=== PATIENT | female | born 1980 ===

== ENCOUNTER 2023-05-17 12:33 | Outpatient (REF) | payer OTHER, SELFPAY ==
[2023-05-17 13:11] LABS: MANUAL DIFF FLAG NO
[2023-05-17 13:18] LABS: Basophils Absolute Auto 0.1 X10*3/uL (0.0-0.2); Basophils Percent Auto 0.8 % (0-2); Eosinophils Absolute Auto 0.1 X10*3/uL (0.0-0.4); Eosinophils Percent Auto 1.3 % (0-4); Hematocrit 35.7 % (37.0-47.0); Imm Gran Abs Auto 0.02 X10*3/uL (0.00-0.03); Imm Gran Pct Auto 0.3 % (0.0-0.4); Lymphocytes Absolute Auto 3.1 X10*3/uL (1.2-4.9); Lymphocytes Percent Auto 40.4 % (20-40); Mean Corpuscular HGB Conc 33.6 g/dl (31.0-35.0); Mean Corpuscular Hemoglobin 24.1 pg (27.0-33.0); Mean Corpuscular Volume 71.7 fL (80.0-98.0); Mean Platelet Volume 10.4 fL (9.4-12.3); Monocytes Absolute Auto 0.5 X10*3/uL (0.1-1.2); Monocytes Percent Auto 6.3 % (2-11); Neutrophils Absolute Auto 3.9 x10*3/uL (2.0-8.3); Neutrophils Percent Auto 50.9 % (45-73); Platelet Count 309 X10*3/uL (160-400); Red Blood Count 4.98 X10*6/uL (4.20-5.50); Red Cell Distribution Width 21.3 % (11.0-16.0); White Blood Count 7.6 X10*3/uL (4.8-10.8)
[2023-05-17 14:33] LABS: Iron 289 mcg/dL (30-160); Percent Iron Saturation 73 % (15-50); Total Iron Binding Capacity 396 mcg/dL (228-428); Unsaturated Iron Binding 107 ug/dL
[2023-05-17 14:51] LABS: Ferritin 29 ng/mL (10-250); TSH reflex Free T4 0.59 uIU/mL (0.32-4.0)
== END 2023-05-17 12:34 | disposition home or self-care (01) ==
LOC: HO.10HDL 12:33
PROVIDERS: Visit Provider Obstetrics & Gynecology
DX: N92.0 Excessive and frequent menstruation with regular cycle (principal)
CPT/HCPCS: 36415; 82728; 83540; 84443; 85025

== ENCOUNTER 2023-05-25 07:24 | Outpatient (REF) | payer OTHER, SELFPAY ==
--- NOTE | ~2023-05-25 | MM_ITS ---
EXAMINATION: MM SCREENING DIGITAL BREAST TOMOSYNTHESIS, BILATERAL CLINICAL INFORMATION: Screening. Asymptomatic. COMPARISON: Mammography: This is a baseline mammogram. TECHNIQUE: Digital breast tomosynthesis is performed in both the craniocaudal and mediolateral oblique views along with computer-aided detection (CAD). Synthesized 2D images are generated from the tomosynthesis. FINDINGS: There are scattered areas of fibroglandular density (ACR BI-RADS breast composition Category b). There are no significant masses, abnormal calcifications, or other abnormalities. MM/MM tomosynthesis screening BI IMPRESSION: No mammographic evidence of malignancy. ASSESSMENT: BI-RADS BI-RADS 1 - Negative RECOMMENDATION: Routine annual mammography screening. 1 year F/U This examination should not preclude the clinical evaluation of a suspicious palpable abnormality. This patient's information was entered into a reminder system with a target due date for their next mammogram.
== END 2023-05-25 07:25 | disposition home or self-care (01) ==
LOC: HO.MAMMO 07:24
PROVIDERS: Visit Provider Obstetrics & Gynecology
DX: Z12.31 Encounter for screening mammogram for malignant neoplasm of breast (principal)
CPT/HCPCS: 77063; 77067

== ENCOUNTER → 2023-05-25 07:30 | Outpatient (BNV) | payer OTHER, SELFPAY | PROVIDERS: Visit Provider Radiology Diagnostic Radiology | DX: Z12.31 Encounter for screening mammogram for malignant neoplasm of breast (principal) | CPT/HCPCS: 77063; 77067 ==

== ENCOUNTER 2023-05-27 16:28 | Outpatient (REF) | payer OTHER, SELFPAY ==
--- NOTE | ~2023-05-27 | US_ITS ---
EXAMINATION: US PELVIS CLINICAL INFORMATION: Hypertrophy of uterus. LMP 05/10/2023. COMPARISON: None available. TECHNIQUE: Ultrasound of the pelvis is performed using both transabdominal and transvaginal transducers along with Doppler. Transvaginal imaging is performed due to inadequate visualization transabdominally. FINDINGS: Uterus: The uterus is anteverted and measures 13.0 x 7.7 x 8.6 cm. Uterine echotexture is heterogeneous. The double wall endometrial thickness is 15 mm. Right uterine fibroid measures 6.5 x 6.8 x 6.0 cm Left uterine fibroid measures 2.4 x 2.7 x 2.2 cm Left uterine fibroid measures 2.5 x 2.7 x 2.9 cm Left uterine fibroid measures 3.4 x 3.3 x 3.1 cm Adnexa: There is no pelvic ascites or fluid collection. Right ovary not seen. Left ovary measures 3.6 x 1.9 x 1.9 cm. US/US pelvic and transvaginal IMPRESSION: Thickened endometrium. Advise correlation with menstrual history. Uterine fibroids.
== END 2023-05-27 16:29 | disposition home or self-care (01) ==
LOC: HO.US 16:28
PROVIDERS: Visit Provider Obstetrics & Gynecology
DX: N85.2 Hypertrophy of uterus (principal)
CPT/HCPCS: 76830; 76856

== ENCOUNTER 2023-08-19 07:49 | Outpatient (REF) | payer OTHER, SELFPAY ==
[2023-08-19 10:46] LABS: MANUAL DIFF FLAG NO
[2023-08-19 10:53] LABS: Basophils Absolute Auto 0.1 X10*3/uL (0.0-0.2); Basophils Percent Auto 1.2 % (0-2); Eosinophils Absolute Auto 0.1 X10*3/uL (0.0-0.4); Eosinophils Percent Auto 1.8 % (0-4); Hematocrit 33.3 % (37.0-47.0); Hemoglobin 11.1 g/dl (12.0-16.0); Imm Gran Abs Auto 0.01 X10*3/uL (0.00-0.03); Imm Gran Pct Auto 0.2 % (0.0-0.4); Lymphocytes Percent Auto 39.5 % (20-40); Mean Corpuscular HGB Conc 33.3 g/dl (31.0-35.0); Mean Corpuscular Hemoglobin 23.3 pg (27.0-33.0); Mean Corpuscular Volume 69.8 fL (80.0-98.0); Mean Platelet Volume 10.3 fL (9.4-12.3); Monocytes Absolute Auto 0.4 X10*3/uL (0.1-1.2); Monocytes Percent Auto 8.4 % (2-11); Neutrophils Absolute Auto 2.5 x10*3/uL (2.0-8.3); Neutrophils Percent Auto 48.9 % (45-73); Platelet Count 287 X10*3/uL (160-400); Red Blood Count 4.77 X10*6/uL (4.20-5.50); Red Cell Distribution Width 19.1 % (11.0-16.0); White Blood Count 5.1 X10*3/uL (4.8-10.8)
[2023-08-19 11:26] LABS: Alanine Aminotransferase 17 U/L (0-31); Albumin Level 3.8 g/dL (3.5-5.0); Alkaline Phosphatase 39 U/L (39-117); Anion Gap 8 (12-20); Aspartate Amino Transferase 21 U/L (5-31); Bilirubin Total 0.5 mg/dL (0.0-1.0); Blood Urea Nitrogen 14 mg/dL (9-16); Calcium 9.1 mg/dL (8.4-10.2); Carbon Dioxide 28 mmol/L (22-29); Chloride 109 mmol/L (96-108); Cholesterol 202 mg/dL (<200); Estimated Glomerular Filt Rate > 60; Glucose Random 88 mg/dL (60-115); HDL Cholesterol 53 mg/dL (>40); Iron 28 mcg/dL (30-160); LDL Cholesterol Calculated 128 mg/dL (<100); Percent Iron Saturation 7 % (15-50); Sodium 141 mmol/L (135-145); Total Iron Binding Capacity 388 mcg/dL (228-428); Total Protein 7.1 g/dL (6.5-8.0); Triglycerides 109 mg/dL (<150); Unsaturated Iron Binding 360 ug/dL
[2023-08-19 11:30] LABS: Ferritin 13 ng/mL (10-250); Free T4 (Free Thyroxine) 0.97 ng/dL (0.71-1.85); Thyroid Stimulating Hormone 0.59 uIU/mL (0.32-4.0); Vitamin D 25-OH Total 49.6 ng/mL (>30)
[2023-08-19 21:11] LABS: Vitamin B12 1515 pg/mL (200-900)
== END 2023-08-19 07:50 | disposition home or self-care (01) ==
LOC: HO.10HDL 07:49
PROVIDERS: Visit Provider Family Medicine
DX: Z00.00 Encounter for general adult medical examination without abnormal findings (principal); D50.0 Iron deficiency anemia secondary to blood loss (chronic); E55.9 Vitamin D deficiency, unspecified; I10 Essential (primary) hypertension; Z90.3 Acquired absence of stomach [part of]
CPT/HCPCS: 36415; 80053; 80061; 82306; 82607; 82728; 83540; 84439; 84443; 85025

== ENCOUNTER 2023-09-16 09:21 | Outpatient (AMB) | payer OTHER, SELFPAY ==
--- NOTE | 2023-09-16 09:28 | A.OFFVIS_ITS ---
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 Worse in right leg. Pain and swelling worse in right leg. Feels heaviness in her knee/leg. Has tried compression socks. Patient not diabetic or a smoker. 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 Complaints include pain over varicosities, swelling of lower extremities, cramping, fatigue, and heaviness of the lower extremities. 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 It is noted more so in right leg. In particular she experiences swelling in the right knee. Also of note she has had prior gastric bypass surgery by . Fellow Patient denies any previous venous surgery or injections. Patient denies any history of DVT/ PE. Patient denies any history of phlebitis. Trial of compression includes - [id number] They now present for vascular evaluation regarding their varicose veins. Review of Systems Const Reports as per HPI ENT Reports no additional complaints Card Denies chest pain, Denies chest pain at rest and Denies chest pain with activity Resp Denies chest congestion and Denies cough GI Reports no additional complaints Musc Details: pain over varicosities, aching of lower extremities, swelling, cramping, heaviness and tiredness, itching Denies abnormal gait Skin/Breast Reports pruritus and Denies wounds Neuro Reports no additional complaints and Denies abnormal gait Psych Denies no additional complaints Physical Exam Const General: cooperative, healthy appearing and comfortable Orientation/consciousness: oriented to person, oriented to place and oriented to time Neck Carotids: no bruits Chest Chest palpation & inspection: normal inspection of the chest and normal palpation of entire chest wall Resp Effort & Inspection: normal respiratory effort and able to speak in complete sentences Cardio Rate: regular rate Heart sounds: S1 normal heart sound present and S2 normal heart sound present Peripheral pulses: Peripheral pulses 2+ throughout GI Inspection: Yes normal to inspection Skin Other: +2 edema, large rope-like varicosities greater than 4 mm right knee CEAP Classification C4 - skin color changes Ep - Etiology Primary As - superficial veins P - reflux General skin exam: dry skin Neuro General: oriented to person, oriented to place and oriented to time Extrem Right lower extremity: full ROM, normal capillary refill and edema Left lower extremity: full ROM, normal capillary refill and edema Psych Mental Status: mental status grossly normal Assessment & Plan Assessment & Plan (1) Varicose veins of right lower extremity with inflammation: Code(s): I83.11 - Varicose veins of right lower extremity with inflammation Category: Medical Plan: In short, the patient has evidence of venous insufficiency. I have discussed the pathophysiology with the patient. In addition I have provided informational material regarding venous disease to the patient. We have discussed conservative measures including compression, elevation, and exercise. I have also provided a handout regarding appropriate use of compression stockings and where to purchase good compression stockings as well. I have taken the liberty of ordering venous insufficiency testing with the patient. They will follow up with me after testing. The patient had an opportunity to ask questions regarding the treatment plan. All questions were answered. Imaging studies, laboratory studies and physical exam results were discussed and reviewed in detail. No major barriers to understanding were identified. The patient expressed understanding and agreement with the above treatment plan. The patient is aware they should contact our office by phone for worsening of the current condition or the appearance of new symptoms. Thank you for allowing me to participate in the vascular care of this patient. If you have any questions or concerns regarding the treatment for the above condition please do not hesitate to contact me. The office telephone contact is [phone]. This note is constructed using voice recognition software. While every effort has been made to ensure accuracy, quick mixer operator errors may have been included. Thank you for allowing me to participate in the care of your patient. Yours sincerely, Oliver Christopher MD, FACS, R.P.V.I. (2) Swelling of right knee joint: Code(s): M25.461 - Effusion, right knee Category: Medical Plan: We will continue to workup her venous disease. Should her knee right knee swelling not improve may benefit from an orthopedic evaluation. Orders: Orders US venous duplex LE BI 1 Week I83.11 - Varicose veins of right lower extremity with inflammation Coding Level of Care Code Est Pt Level 4 (51463) Diagnoses Varicose veins of right lower extremity with inflammation I83.11 Swelling of right knee joint M25.461
== END 2023-09-16 09:54 | disposition home or self-care (01) ==
PROVIDERS: PCP Internal Medicine; Visit Provider Surgery Vascular Surgery
DX: I83.11 Varicose veins of right lower extremity with inflammation (principal); M25.461 Effusion, right knee
CPT/HCPCS: 99203

== ENCOUNTER → 2023-09-16 09:21 | Outpatient (BNVA) | payer OTHER, SELFPAY | PROVIDERS: PCP Internal Medicine; Visit Provider Surgery Vascular Surgery ==

== ENCOUNTER 2023-10-14 08:22 | Outpatient (REF) | payer OTHER, SELFPAY ==
--- NOTE | ~2023-10-14 | US_ITS ---
EXAMINATION: US LOWER EXTREMITY VENOUS (REFLUX EXAM), BILATERAL CLINICAL INDICATION: Varicose veins of the right lower extremity COMPARISON: None. TECHNIQUE: Color flow triplex imaging and compression Doppler was performed to evaluate both the deep and the superficial systems bilaterally. To evaluate the superficial system, the examination was performed in the upright position. Color-flow Doppler ultrasound and compression ultrasound were utilized. In addition, maneuvers were utilized to demonstrate reflux. FINDINGS: RIGHT: 1. DEEP VENOUS ULTRASOUND OF THE RIGHT LOWER EXTREMITY: Common Femoral Vein: Compressible, normal respiratory variation and augmented flow. Popliteal Vein: Compressible, normal augmentation. Deep Venous Reflux: There is no evidence of reflux in the deep system in either the common femoral vein or the popliteal vein. There is no evidence of a Junior's cyst. 2. SUPERFICIAL ULTRASOUND WITH DOPPLER OF RIGHT LOWER EXTREMITY: RIGHT GREAT SAPHENOUS VEIN: Saphenofemoral Junction: 7 mm. No reflux. Proximal Thigh: 8 mm. No reflux. Mid Thigh: 6 mm. No reflux. Above Knee: 5 mm. 3276 ms reflux. Below Knee: 3 mm. 3232 ms reflux. Mid Calf: 2 mm. No reflux. Ankle: 2 mm. No reflux. DUPLICATED GREAT SAPHENOUS VEIN: None RIGHT SMALL SAPHENOUS VEIN: Proximal: 5 mm. No reflux. Distal: 2 mm. No reflux. PERFORATORS: None Varicose veins: Right proximal thigh great saphenous vein: 5 mm. No reflux Right above knee great saphenous vein: 3 mm. No reflux Right proximal calf great saphenous vein: 4 mm. No reflux LEFT: 1. DEEP VENOUS ULTRASOUND OF THE LEFT LOWER EXTREMITY: Common Femoral Vein: Compressible, normal respiratory variation and augmented flow. Popliteal Vein: Compressible, normal augmentation. Deep Venous Reflux: There is no evidence of reflux in the deep system in either the common femoral vein or the popliteal vein. There is no evidence of a Junior's cyst. 2. SUPERFICIAL ULTRASOUND WITH DOPPLER OF LEFT LOWER EXTREMITY: LEFT GREAT SAPHENOUS VEIN: Saphenofemoral Junction: 5 mm. No reflux. Proximal Thigh: 6 mm. No reflux. Mid Thigh: 3 mm. No reflux. Above Knee: 3 mm. No reflux. Below Knee: 2 mm. No reflux. Mid Calf: 1 mm. No reflux. Ankle: 2 mm. No reflux. DUPLICATED GREAT SAPHENOUS VEIN: None LEFT SMALL SAPHENOUS VEIN: Proximal: 2 mm. No reflux. Distal: 1 mm. No reflux. PERFORATORS: None US/US venous duplex LE BI IMPRESSION: 1. Abnormal superficial reflux for short segment of the great saphenous vein at the level of the knee. 2. Right proximal thigh to proximal calf varicose veins arising from the great saphenous vein, without abnormal reflux. Abnormal lower extremity venous reflux times: Superficial and deep calf veins: >500 ms Femoropopliteal veins: >1000 ms Perforating veins: >350 ms Aaron N, Ryan J, Nesha L, Arline AK, Lester SS, Gavin Bennett M, Sandi WH. Definition of venous reflux in lower-extremity veins.J Vasc Surg. 2003; [phone].
== END 2023-10-14 08:23 | disposition home or self-care (01) ==
LOC: HO.US 08:22
PROVIDERS: PCP Internal Medicine; Visit Provider Surgery Vascular Surgery
DX: I83.11 Varicose veins of right lower extremity with inflammation (principal)
CPT/HCPCS: 93970

== ENCOUNTER 2023-11-09 08:55 | Outpatient (AMB) | payer OTHER, SELFPAY ==
--- NOTE | 2023-11-09 08:57 | MHC.OFFVIS ---
Vital Signs 11/09/23 08:57 Height 5 ft 4 in Intake Visit Reasons: Follow Up 10/13 US Intake Note: Follow up US 10/14/23 for Right LE VV w/ Heaviness and pain around the knee. Wears compression daily Accompanied by: Self / Same As Patient Allergies red dye Allergy (Mild, Verified 11/09/23 09:00) [facility] HPI Follow Up 10/13 US: Details: Very pleasant 43-year-old female presents for follow-up regarding venous disease. 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 She has used compression with minimal relief. She now presents for follow-up with venous insufficiency testing. Review of Systems Const Reports as per HPI ENT Reports no additional complaints Card Denies chest pain, Denies chest pain at rest and Denies chest pain with activity Resp Denies chest congestion and Denies cough GI Reports no additional complaints Musc Details: pain over varicosities, aching of lower extremities, swelling, cramping, heaviness and tiredness, itching Denies abnormal gait Skin/Breast Reports pruritus and Denies wounds Neuro Reports no additional complaints and Denies abnormal gait Psych Denies no additional complaints Physical Exam Const General: cooperative, healthy appearing and comfortable Orientation/consciousness: oriented to person, oriented to place and oriented to time Neck Carotids: no bruits Chest Chest palpation & inspection: normal inspection of the chest and normal palpation of entire chest wall Resp Effort & Inspection: normal respiratory effort and able to speak in complete sentences Cardio Rate: regular rate Heart sounds: S1 normal heart sound present and S2 normal heart sound present Peripheral pulses: Peripheral pulses 2+ throughout GI Inspection: Yes normal to inspection Skin Other: +2 edema, large rope-like varicosities greater than 4 mm right medial thigh CEAP Classification C4 - skin color changes Ep - Etiology Primary As - superficial veins P - reflux General skin exam: dry skin Neuro General: oriented to person, oriented to place and oriented to time Extrem Right lower extremity: full ROM, normal capillary refill and edema Left lower extremity: full ROM, normal capillary refill and edema Psych Mental Status: mental status grossly normal Results Reviewed Results Reviewed: Brief summary of venous insufficiency testing is as follows: right great saphenous vein: Positive right small saphenous vein: negative right accessory vein: none present left great saphenous vein: negative left small saphenous vein: negative left accessory vein: none present Please note there is no evidence of any venous aneurysms or significant tortuosity Assessment & Plan Assessment & Plan (1) Varicose veins of right lower extremity with inflammation: Code(s): I83.11 - Varicose veins of right lower extremity with inflammation Category: Medical Plan: This patient has varicose veins with inflammation. They continue to be a source of discomfort for the patient. The patient has tried conservative treatment with compression, leg elevation and exercise program for over 3 months time. They have been compliant with all treatment. This has provided minimal relief for the patient. I do not anticipate this course of treatment will alter the underlying etiology. The patient has been scheduled for lower extremity venous treatment inclusive of --- right great saphenous vein Cyanoacralate ablation. Risks, benefits, and complications of this procedure has been discussed in detail with the patient including but not limited to bleeding, infection, and the development of a DVT. The patient has demonstrated a clear understanding and has consented. We will schedule the patient as soon as possible. Thank you for allowing us to participate in this patient's care. If there are any questions or concerns please do not hesitate to contact us. Coding Level of Care Code Est Pt Level 4 (97300) Diagnoses Varicose veins of right lower extremity with inflammation I83.11
== END 2023-11-09 09:49 | disposition home or self-care (01) ==
PROVIDERS: PCP Internal Medicine; Visit Provider Surgery Vascular Surgery
DX: I83.11 Varicose veins of right lower extremity with inflammation (principal)
CPT/HCPCS: 99214

== ENCOUNTER → 2023-11-09 08:55 | Outpatient (BNVA) | payer OTHER, SELFPAY | PROVIDERS: PCP Internal Medicine; Visit Provider Surgery Vascular Surgery ==

== ENCOUNTER 2023-11-26 12:21 | Outpatient (AMB) | payer OTHER, SELFPAY ==
--- NOTE | 2023-11-26 12:28 | A.OFFVIS_ITS ---
Intake Visit Reasons: Right GSV Venaseal Accompanied by: Self / Same As Patient Allergies red dye Allergy (Mild, Verified 11/26/23 12:29) Hives Office Procedures Vascular Office Procedure Details Details: Diagnosis: Right Leg varicose veins with inflammation Procedure: Endovenous Ablation of the right Great Saphenous Vein with VenaSeal Closure System Anesthesia: Local infiltration 5 cc, Estimated Blood Loss: min Specimen: none Duplex ultrasound was used to map out the insufficient saphenous vein, and access was determined and marked on the overlying skin. The depth and diameter of the vein(s) to be treated was documented. The patient was placed supine on the procedure table and the leg was prepped and draped using sterile technique. Ultasound guidance was again used to localize the access site. 1% lidocaine was injected as a local anesthetic in the subcutaneous tissues at the target location in the GSV in the lower leg. Using ultrasound guidance, access was gain ed at this location with the 19 gauge thin walled access needle and followed by introduction of a short guidewire, location confirmed with ultrasound. A small, 3 mm incision was made at the access site to allow for introduction and placement of the 7 Fr x7cm introducer/dilator. The dilator and guidewire were removed. The 0.035 guidewire from the VenaSeal kit was then introduced and positioned at the saphenofemoral junction using ultrasound guidance. The 80 cm 7 Fr introducer sheath/dilator was positioned 5cm from the saphenofemoral junction. The guidewire and dilator were removed, and the remaining sheath was flushed with sterile saline, with the syringe remaining in place prior to the next steps. The cyanoacrylate adhesive was precisely primed into the 5 F delivery catheter and this catheter/syringe combination was attached within the dispenser gun. This assembly was introduced through the 7F sheath and positioned 5 cm caudal of the saphenofemoral junction under ultrasound guidance. The steps from the IFU were followed for dispensing amounts, locations and compression times, 2 aliquots proximally with 3 minutes of compression, and 1 aliquot every 3 cm distally with 30 sec of compression along the course of the vessel. Following the last injection and compression sequence, the catheter and introducer sheath were pulled out from the access site. Hemostasis was achieved with manual compression and an adhesive bandage was applied to the incision. Ultrasound confirmed complete coaptation and closure of the treated segments of the GSV, and the absence of any DVT at the saphenofemoral junction. Treatment time was approximately 5 minutes and the vein length treated was 30 cm. The drapes were removed and the patient cleaned and prepared for discharge. Post op ultrasound check is scheduled for 48-72 hours and the patient was given written post-op instructions. 35744 - Endoven Ther Chem Adhes 1st All charges added?: Procedure code (CPT) selection complete Assessment & Plan Assessment & Plan (1) Varicose veins of right lower extremity with inflammation: Comment: 11/26/2023 - right great saphenous vein Cyanoacralate ablation Code(s): I83.11 - Varicose veins of right lower extremity with inflammation Category: Medical Plan: See op note Coding Level of Care Code Procedure Only Diagnoses Varicose veins of right lower extremity with inflammation I83.11 CPT Codes Details - Vascular 3: 75161 - Endoven Ther Chem Adhes 1st ([id number])
== END 2023-11-26 13:19 | disposition home or self-care (01) ==
PROVIDERS: PCP Internal Medicine; Visit Provider Surgery Vascular Surgery
DX: I83.11 Varicose veins of right lower extremity with inflammation (principal)
CPT/HCPCS: 36482

== ENCOUNTER → 2023-11-26 12:21 | Outpatient (BNVA) | payer OTHER, SELFPAY | PROVIDERS: PCP Internal Medicine; Visit Provider Surgery Vascular Surgery | DX: I83.11 Varicose veins of right lower extremity with inflammation (principal) | CPT/HCPCS: 36482 ==

== ENCOUNTER 2023-11-29 15:30 | Outpatient (REF) | payer OTHER, SELFPAY ==
--- NOTE | ~2023-11-29 | US_ITS ---
EXAMINATION: TRIPLEX SCANNING OF RIGHT LOWER EXTREMITY; SUPERFICIAL ULTRASOUND WITH DOPPLER OF RIGHT LOWER EXTREMITY CLINICAL INFORMATION: Status post RF ablation of the right great saphenous vein originally performed on 11/26/2023. COMPARISON: Preprocedure studies. TECHNIQUE: Color flow triplex imaging and compression Doppler were performed as well as superficial ultrasound with Doppler. FINDINGS: TRIPLEX SCANNING OF RIGHT LOWER EXTREMITY: Respiratory variation, normal compression and augmented flow are noted throughout the lower extremity. The visualized right common femoral vein, femoral vein, profunda femoral vein, popliteal vein and the calf veins show no evidence of deep venous thrombosis. There is no evidence of Junior's cyst. SUPERFICIAL ULTRASOUND WITH DOPPLER OF RIGHT LOWER EXTREMITY: The right great saphenous vein is occluded from the access site to 2.2 cm before the saphenofemoral junction. There is no extension of thrombus into the deep system. US/US venous duplex LE RT IMPRESSION: 1. Normal triplex scan of the right without evidence of deep venous thrombosis. 2. Excellent appearance status post ablation of the right great saphenous vein.
== END 2023-11-29 15:31 | disposition home or self-care (01) ==
LOC: HO.US 15:30
PROVIDERS: PCP Internal Medicine; Visit Provider Surgery Vascular Surgery
DX: M79.604 Pain in right leg (principal)
CPT/HCPCS: 93971

== ENCOUNTER 2023-12-14 08:59 | Outpatient (AMB) | payer OTHER, SELFPAY ==
--- NOTE | 2023-12-14 09:03 | A.OFFVIS_ITS ---
Vital Signs 12/14/23 09:03 Height 5 ft 4 in Intake Visit Reasons: 2 week follow up Right GSV Venaseal 11/26/23 Intake Note: 2 week follow up Right GSV Venaseal 11/26/23, pt states she feels better overall, does have some achiness in bilateral LE from being on her feet all day but the right LE looks and feels better than before Accompanied by: Self / Same As Patient Allergies red dye Allergy (Mild, Verified 12/14/23 09:05) Hives HPI HPI 2 week follow up Right GSV Venaseal 11/26/23: Details: Very pleasant 43-year-old female presents for follow-up status post right great saphenous vein ablation. She appears to be doing extremely well postprocedure. Overall swelling and discomfort have significantly improved. She now presents for routine postprocedure follow-up. Of note postprocedure ultrasound was negative for DVT. Review of Systems Const All systems reviewed & are unremarkable except as noted in HPI and below Reports no additional complaints ENT Reports Normal hearing present Card Denies chest pain, Denies chest pain at rest, Denies chest pain with activity and Denies pedal edema Resp Denies cough GI Denies abdominal pain Musc Denies abnormal gait, Denies muscle cramps and Denies radiating pain into limb Skin/Breast Denies skin ulcer and Denies wounds Neuro Reports Normal hearing present and Denies abnormal gait Psych Reports no additional complaints Physical Exam Const General: cooperative, healthy appearing and comfortable Orientation/consciousness: oriented to person, oriented to place and oriented to time HEENT Head: Yes normal to inspection Neck Neck: Yes normal visual inspection Carotids: no bruits Chest Chest palpation & inspection: normal inspection of the chest Resp Effort & Inspection: normal respiratory effort and able to speak in complete sentences Auscultation: clear to auscultation bilaterally, no crackles, no rales, no rhonc hi and no wheezes Cardio Rate: regular rate Rhythm: regular rhythm Heart sounds: S1 normal heart sound present and S2 normal heart sound present Bruits: no carotid bruits Peripheral pulses: Peripheral pulses 2+ throughout GI Inspection: Yes normal to inspection Skin Wounds: no wounds Hair: normal Neuro General: oriented to person, oriented to place and oriented to time Cranial nerves: Yes CN's II-XII intact bilaterally and Yes Normal hearing present Cognition (Neuro): normal cognition Motor exam (neuro): 08/28 motor strength present throughout Extrem Other: venous exam: No significant superficial varicosities or spider telangiectasias, minimal edema General: No clubbing, No cyanosis and No edema Psych Appearance: grossly normal Mental Status: mental status grossly normal Speech and movement: Normal speech and movement present Assessment & Plan Assessment & Plan (1) Varicose veins of right lower extremity with inflammation: Comment: 11/26/2023 - right great saphenous vein Cyanoacralate ablation Code(s): I83.11 - Varicose veins of right lower extremity with inflammation Category: Medical Plan: The patient has done extremely well with all venous treatments. Patient's may often experience postprocedure phlebitic episodes and I have discussed with the patient use of warm compresses and NSAIDS if tolerated for pain discomfort. In addition, I have discussed continued conservative measures including use of compression, leg elevation, and exercise. The patient was also given an information sheet regarding appropriate use of compression stockings and future purchases. Thank you for allowing us to care for your patient with venous disease. Coding Level of Care Code Est Pt Level 3 (43175) Diagnoses Varicose veins of right lower extremity with inflammation I83.11
== END 2023-12-14 09:27 | disposition home or self-care (01) ==
PROVIDERS: PCP Internal Medicine; Visit Provider Surgery Vascular Surgery
DX: I83.11 Varicose veins of right lower extremity with inflammation (principal)
CPT/HCPCS: 99213

== ENCOUNTER → 2023-12-14 08:59 | Outpatient (BNVA) | payer OTHER, SELFPAY | PROVIDERS: PCP Internal Medicine; Visit Provider Surgery Vascular Surgery ==

== ENCOUNTER 2024-06-21 12:05 | Outpatient (REF) | payer OTHER, SELFPAY ==
--- OUTSIDE RECORDS SUMMARY | 2024-06-21 15:06 | XMS_ITS | Clinical Summary ---
Author Organization [facility] [address] [facility] l[address] Address [address] [place] [address] Phone Care Team Providers Care Project Engineering Director Name Role Phone Siobhan Kumar MD Primary Care Provider Allergies Active Allergy Reactions Criticality Noted Date Comments Fd And C Red No. 3 06/03/2017 Other Reaction(s): Hives/Urticaria Other 08/16/2018 Lobster Medications apple cider vinegar 500 mg tablet Take by mouth daily. Active MULTIVITAMIN ORAL Take by mouth. Active cholecalciferol (VITAMIN D-3) 50 mcg (2,000 unit) tablet Take by mouth. Active CIMETIDINE ORAL Take by mouth. Active losartan-hydroCHL OROthiazide (HYZAAR) 50-12.5 mg per tabletIndications :Essential (primary) hypertension TAKE 1 TABLET BY MOUTH EVERY DAY 90 tablet 1 03/17/2024 Active Active Problems Problem Noted Date Diagnosed Date Eating disorder 11/05/2020 Prediabetes 06/12/2020 Vitamin D deficiency 06/10/2020 Pure hypercholesterolemia 08/16/2018 Class 2 obesity due to exces s calories with body mass index (BMI) of 38.0 to 38.9 in adult 06/03/2017 Immunizations Name Administration Dates Next Due Influenza trivalent, with pr eservative (Fluzone; Afluria) 6mo and older 02/07/2021,01/20/2018 Influenza, Unspecified 02/10/2019 Tdap Tetanus diptheria acell ular pertussis (Boostrix; Adacel) 7yo and older 06/10/2018,05/22/2010 Surgical History Surgery Date Site/Laterality Comments BARIATRIC SURGERY 11/20/2020 PROCEDURE: MI LAPS GSTRC RSTRICTIV PX LONGITUDINAL GASTRECTOMY; COMMENT: By Dr. Ann - laparoscopic sleeve gastrectomy Medical History Medical History Date Comments History of abnormal cervical Pap smear 08/16/2018 DX:History of abnormal cervical Pap smear; COMMENT: ASCUS 2000 Morbid obesity with BMI of 4 0.0-44.9, adult (CMS/HCC) 06/03/2017 DX:Morbid obesity with BMI o f 40.0-44.9, adult (HCC) Pure hypercholesterolemia 08/16/2018 DX:Pur e hypercholesterolemia Vitamin D deficiency 06/10/2020 DX:Vitamin D deficiency Prediabetes 06/12/2020 DX:Prediabetes Eating disorder 11/05/2020 DX:Eating disord er History of sleeve gastrectomy 12/10/2020 DX :History of sleeve gastrectomy; COMMENT: 10/2020 Family History Medical History Relation Name Comments Heart attack Father Hyperlipidemia Father Hypertension Father hypercholestero lemia, [place] Diabetes Maternal Grandfather No Known Problems Maternal Grandmother Diabetes Mother Hypertension Mother Multiple Sclero sis, DM Multiple sclerosis Mother Leukemia Paternal Grandfather Stroke Paternal Grandmother [place] No Known Problems Sister Relation Name Status Comments Father Alive Maternal Grandfather Maternal Grandmother Alive Mother Alive Paternal Grandfather Paternal Grandmother Sister Alive Social History Tobacco Use Types Packs/Day Years Used Date Smoking Tobacco: Never Smokeless Tobacco: Never Alcohol Use Standard Drinks/Week Comments Yes 0 (1 standard drink = 0.6 oz pur e alcohol) Comments Unknown Sex and Gender Information Value Date Recorded Sex Assigned at Not on file Legal Sex Female 8:51 PM EST Gender Identity Not on file Sexual Orientation Not on file Obstetrics History Last Filed Vital Signs Vital Sign Reading Time Taken Comments Blood Pressure 124/80 03/14/2024 1:46 PM EST Pulse 75 03/14/2024 1:46 PM EST Temperature 36.6 ??C (97.8 ??F) 03/14/2024 1:46 PM ES T Respiratory Rate - - Oxygen Saturation - - Inhaled Oxygen Concentration - - Weight 81.6 kg (180 lb) 03/14/2024 1:46 PM EST Height 162.6 cm (5' 4 ) 03/14/2024 1:46 PM EST Body Mass Index 30.9 03/14/2024 1:46 PM EST Plan of Treatment Health Maintenance Due Date Last Done Comments Breast Cancer Screening 1982 Hepatitis B Vaccines (1 of 3 - 19+ 3-dose series) 2001 Depression Screening 04/04/2022 HIV Screening 04/04/2022 Hepatitis C Screening 04/04/2022 Social Influencers of Health Screening 04/04/2022 Hypertension/CHF/CAD Annual BMP Blood Test 10/31/2023 10/30/2022 COVID-19 Vaccine (3 2023- season) 2023 01/24/2021, 12/27/2020 Influenza Vaccine (#1) 2023 , 02/10/2019, 01/20/2018, Additional history exists Cervical Cancer Screening: Pap Smear 05/13/2026 05/13/2023 Cholesterol Screening (Lipid Panel) 10/31/2027 10/30/2022 DTaP,Tdap,and Td Vaccines (3 - Td or Tdap) 06/10/2028 06/10/2018, 05/22/2010 HIB Vaccines Aged Out No longer eligi ble based on patient's age to complete this topic HPV Vaccines Aged Out No longer eligi ble based on patient's age to complete this topic Hepatitis A Vaccines Aged Out No long er eligible based on patient's age to complete this topic IPV Vaccines Aged Out No longer eligi ble based on patient's age to complete this topic MMR Vaccines Aged Out No longer eligi ble based on patient's age to complete this topic Meningococcal ACWY Vaccine Aged Out N o longer eligible based on patient's age to complete this topic Meningococcal B Vacine Aged Out No lo nger eligible based on patient's age to complete this topic Pneumococcal Vaccine: Pediatrics (0 to 5 Years) and At-Risk Patients (6 to 64 Years) Aged Out No longer eligible based on patient's age to complete this topic RSV Immunization Patients Under 20 months Aged Out No longer eligible based on patient's age to complete this topic Varicella Vaccines Aged Out No longer eligible based on patient's age to complete this topic Procedures Procedure Name Priority Date/Time Associated Diagnosis Comments HM PAP SMEAR Routine 05/13/2023 ANNUAL BMP BLOOD TEST Routine 10/30/2022 LIPID PANEL Routine 10/30/2022 from Last 3 Months or Most Recently Relevant to Health Maintenance Results * Pap Smear (05/13/2023) Pap smear Normal, Abstracted Comment:normal per pt report fby PROFESSOR OF POLITICAL SCIENCE [facility] Provider HEALTH MAINTENANCE Final Result * Annual BMP Blood Test (10/30/2022) Annual BMP Blood Test Abstracted [facility] Provider HEALTH MAINTENANCE Final Result * (ABNORMAL) Lipid panel (10/30/2022) LDL/HDL Ratio 4 0 - 4 Triglycerides 194(A) 0 - 150 mg/dL Cholesterol 251(A) 0 - 200 mg/dL HDL 61 >=40 mg/dL LDL Cholesterol 152(A) 0 - 100 mg/dL Blood Venous blood specimen / Unknown [facility] Provider LAB BLOOD ORDERABLES [place] l Result from Last 3 Months or Most Recently Relevant to Health Maintenance Insurance Care Teams Project Engineering Director Relationship Specialty Start Date End Date Siobhan Kumar MD [address] [place] [id number] PCP - General Internal Medicine 12/03/21
--- OUTSIDE RECORDS SUMMARY | 2024-06-21 15:06 | XMS_ITS | Continuity of Care Document ---
Author Organization [facility] Address [address] [place], [place] [address] [place] [address] SOCIAL HISTORY Not on file MENTAL STATUS Not on file ENCOUNTERS Reason for Visit Encounter Type Attending Provider Locatio n Date Not Specified Not Specified Dianna Huff 05/28/19 25 FAMILY HISTORY Not on file
--- OUTSIDE RECORDS SUMMARY | 2024-06-21 15:06 | XMS_ITS | Continuity of Care Document ---
Author Organization [address] [place] [address] Phone Care Team Providers Care Glass Washer Name Role Phone Provider, Conversion Unavailable Unavailable [...] Diagnoses Date Provider Providers Copied on Encounter [address] [place] [id number], [place] tel:[phone] [facility] No Information Sep-0 4 Provider Conversion. . [address] [place], [id number], [place] tel:[phone] [facility] ([phone]) Sep-0 3 Unidentified Provider. [address] [place] [address], [id number], . [address] [place], [id number], [place] tel:[phone] [facility] No Information Sep-0 3- 3 Unidentified Provider. [address] [place] [address], [id number], . [address] [place], [id number], [place] tel:[phone] [facility] No Information Sep-0 2 Unidentified Provider. [address] [place] [address] Mary Beth, [place], [address], [place]. [address] [place], [place], [id number], [place] tel:[phone] [facility] No Information 2 Provider Conversion. . Family History Family [...] Record Payers Payer name Insurance type Covered republican ID Authoriza tion(s) No Information Social History [...]
--- OUTSIDE RECORDS SUMMARY | 2024-06-21 15:06 | XMS_ITS | Data Portability ---
Author Organization [place] - [facility],, LASHELL MERRITT MD Address [address] [facility] [address] [place] [phone] Care Team Providers Care Event Sales Manager Name Role Phone MAHESHBRYANNA BERNARDO Primary Care Provider Assessment No assessment recorded. Plan of Treatment Reminders Order Date Submit Date Provider Last Modified By Organization Details Last Modified Time Details Appointments None recorded. Lab biopsy, endometria l 2023 024 [facility] (Centralized Electronic Ordering - All Locations), Patient Can Go To The Location Of Their Choice, [id number] 4 07:38:27 test, urine 2023 024 [email or web address] 1 In-Office Order, Internal Use Only DO Not Attach Compendium DO Not Attach Compendium, Do Not Delete/merge, [id number] 4 10:24:27 pap test, thinprep, cervical 2023 024 [facility] - All Locations), Patient Can Go To The Location Of Their Choice, [id number] 4 07:25:44 TSH, serum or plasma 2023 024 [facility], [place], [address], 4 11:34:36 CBC w/ auto diff 2023 024 [facility], [place], [address], 4 11:34:35 iron + TIBC + ferritin, serum 2023 [facility], [address] [facility] [place], [address], 4 11:34:35 Referral infertilit y reproducti ve endocrinol ogy referral - has a 7 cm fibroid, desires fertility, please assess for possible myomectomy 2023 [facility], [address], [place], [address], 5 07:24:01 Procedures None recorded. Surgeries None recorded. Imaging MAMMO, screening, digital, bilateral - Breast Aspiration and/or Biopsy if needed 2023 [facility] (Imaging), [address] [place], [address], 4 08:07:32 US, pelvis, transabdom inal + transvagin al - enlarged uterus, fibroids, menorrhagi a 2023 024 [facility] (Imaging), [address] [place], [address], 4 18:14:23 Medication Orders doxycyclin e monohydrat e 100 mg capsule 2023 [id number], [address] [facility] [place], [address], 4 11:22:37 Patient TargetsNo targets recorded. 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 She had been going to Dr. Huerta. Same partner for many years, on and off, they never got together. She did have 2 pregnancies with a different partner, one was premature at 24 weeks, who did not survive, the other was an IUFD at 22 weeks, many years ago. She is sexually active with no control and no with this partner for decades, on and off, since high school. She would actually like to be if she could but does not desire actively investigating this. He has never fathered any children. She was told in the remote past that she had a fibroid based on sonogram. She had been offered an IUD for her severe menorrhagia nad anemia due to this, but she had declined. Her PCP diagnosed her with low iron and ferritin this summer and she has been taking iron pills has not had it retested. She notes her flow is very heavy for 3 days then tapers off, the heaviest flow she changes a super tampon every 2 to 4 hours and may bleeding through it anyway. We had a long discussion about all this. check cbc and iron studies, check pelvic sonogram, and then will do a telehealth to discuss best management. If she wants to know if her partner is infertile we can do a PCT, she is advised on how to do this. We discussed high risks issues with fibroids and she is advised to NOT attempt fertility until we know what the fibroid is like. She appears to be doing well. Check baseline mammogram. Monthly self breast exam was taught, and stressed, and is advised to call if she discovers any new mass in the breast. Not available 05/05/2023 09:47:27 06/10/2023 [id number] abnormal uterine bleeding: care instructions Not available 06/10/2023 10:24:27 endometrial biopsy: about this test Not available 06/10/2023 10:24:27 She is here for emb for menorrhagia and a 15 mm endometrium on sonogram. LMP was 10 days ago, has not been sexually active since LMP began, menses came at the correct time and normal flow. Urine hcg is negative. 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 She had been going to Dr. Huerta. Same partner for many years, on and off, they never got together. She did have 2 pregnancies with a different partner, one was premature at 24 weeks, who did not survive, the other was an IUFD at 22 weeks, many years ago. She is sexually active with no control and no with this partner for decades, on and off, since high school. She would actually like to be if she could but does not desire actively investigating this. He has never fathered any children. She was told in the remote past that she had a fibroid based on sonogram. She had been offered an IUD for her severe menorrhagia nad anemia due to this, but she had declined. Her PCP diagnosed her with low iron and ferritin this summer and she has been taking iron pills has not had it retested. She notes her flow is very heavy for 3 days then tapers off, the heaviest flow she changes a super tampon every 2 to 4 hours and may bleeding through it anyway. We had a long discussion about all this. check cbc and iron studies, check pelvic sonogram, and then will do a telehealth to discuss best management. If she wants to know if her partner is infertile we can do a PCT, she is advised on how to do this. We discussed high risks issues with fibroids and she is advised to NOT attempt fertility until we know what the fibroid is like. She appears to be doing well. Check baseline mammogram. Uterus sounds to 10 cm, was 13 cm long on sonogram. She tolerated emb well. Await results. recent labs TSH 0.59, H/H 12/35, iron studies high normal. She is tolerating this menorrhagia well, however she would like to do what she can to diminish this heavy flow. Not available 06/10/2023 10:27:21 07/01/2023 [id number] uterine fibroids : care instructions Not available 07/01/2023 11:23:42 This visit is a phone telehealth visit. The patient consented to the visit by phone. The patient was at home at the time of the call and the provider and patient were the only people on the line. I was at [address] [facility], [address], [place], [place], at the time of the call. She had a recent emb that showed chronic endometritis. LMP 06/27/23. __ Note from 06/10/23: She is here for emb for menorrhagia and a 15 mm endometrium on sonogram. LMP was 10 days ago, has not been sexually active since LMP began, menses came at the correct time and normal flow. Urine hcg is negative. She is aware that this may or may not explain some of her symptoms however she would like to treat it to see if it helps. She is aware that doxycycline can cause defects, LMP began 4 days ago, she is abstinent, and agrees to not have intercourse this cycle. She will repeat EMB in 4 weeks, again will remain abstinent until after the emb.. All questions answered. We also discussed the 7 cm fibroid, she would like to have it removed before she attempts fertility, referral placed for E and I. The patient was agreeable to this plan. She is aware of the limitations caused by the covid restrictions, and this phone call. Face to face discussion 21 minutes Not available 07/01/2023 13:31:00 Reason for Referral Infertility Reproductive End ocrinology Referral for Uterine leiomyoma has a 7 cm fibroid, desires fertility, please assess for possible myomectomy Referring Physician: Lashell Merritt, Gynecology, Encounter Date: 07/01/2023 Results Created Date Observation Date Name Description Value Unit Range Abnormal Flag Note LastModifiedBy Organization Detail LastModifiedTime 05/05/19 24 05/05/2023 [facility] CYTOL OGY results Patilyndsey nt Name: SIOBHAN MONTES nt : 1980 (Age: 42) Lab Acces segun #: [id number] Colle ction Date: 2023 Acces segun Date: 2023 Sign Out Date: 2023 Tissu e Sourc e: 1: 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 React jayme cellu jordan fabian es assoc iated with infla mmati on. Satis facto ry for evalu ation . Endoc ervic al/tr ansfo rmati on zone prese nt. Clini chana Histo ry: Date of Last Menst rual Perio d: not avail able Menst rual Histo ry: not avail able Contr acept jayme Histo ry: not avail able Ancil amanda Testi ng: Case image d by the ThinP rep Imagi ng Syste m with wanda patel or sourav negrete. Perfo rmed at [facility] ate Refer ence Labor at[facility] t[facility] Cytol ogy, [address] [place] Clini chana Histo ry (othe r): Z01.4 19 Prima ry Patho logis t: Danyell hassan M.D. Phone #: [phone], On-Ca ll Patho logis t: [id number] Not Available [facility] (Centralized Electronic Ordering - All Locations) Patient Can Go To The Location Of Their Choice, [id number] 05/14/2023 09:42:33 06/10/19 24 06/10/2023 [facility] SURGI CHANA PATHO LOGY results Patie nt Name: SIOBHAN MONTES Lab Acces segun #: [id number] Patie nt : 1980 (Age: 43) Colle ction Date: 2023 Acces segun Date: 2023 Sign Out Date: 024 Tissu e Sourc e: 1:END OMETR IUM BIOPS Y Final Diagn osis: Endom etriu m, biops y: - Sugge stive of chron ic endom etrit is NOTE: Proli ferat jayme endom etriu m is prese nt with spind led malgorzata del real nts, lymph oid aggre morse , and scatt ered eosin ophil s. The latte r featu res may be assoc iated with chron ic endom etrit is, howev er plasm a cells are not ident ified . There fore, a diagn osis of chron ic endom etrit is canno t be firml y estab lishe d based on histo logic findi ngs in this mater ial. Prima ry Patho logis t:Rachel villarreal M.D. elect melody virk carley d out by: Aubree villarreal M.D. / DIPTI Clini chana Histo ry: Thick ened endom etriu m Gross Descr iptio n: Label ed EMB . Recei cinthia in forma gabe and filte red is a 2.4 x 1.7 x 0.2 cm aggre gate of red, ryan tissu e. The speci men is entir moy submi tted. 1-mul tiple piece s, x2. (HG)* Phone #: [phone], On-Ca ll Patho logis t: [id number] Not Available [facility] (Centralized Electronic Ordering - All Locations) Patient Can Go To The Location Of Their Choice, [id number] 06/29/2023 16:57:41 06/10/19 24 06/10/2023 pregn delia test, urine HCG negati ve Not Available In-Office Order Internal Use Only DO Not Attach Compendium DO Not Attach Compendium, Do Not Delete/merge, [id number] 06/10/2023 10:23:05 05/31/19 24 05/27/2023 US, pelvi s, trans abdom inal + trans vagin al No observ ation record ed. [address], [address], 06/07/2023 15:34:49 06/07/19 24 05/25/2023 MAMMO , scree kenny, digit al, bilat eral No observ ation record ed. [email or web address] [address] [place], [address], 06/21/2023 08:11:13 Result Notes None recorded. Problems Name Problem SNOMED Code Status Onset Date Resolution Date Notes Provider Name and Address Organization Details Recorded Time Anemia 395061607 Active 2023 Carmel lombardi [place] - [facility], 01/10/202 4 08:57:50 Hypertensive disorder 15227221 Active 2023 Carmel lombardi [place] - [facility], 4 08:57:56 Problem Notes None recorded. Procedures Surgical History Date Name Laterality Status Provider Name and Address Organization Details Recorded Time 06/10/19 24 Endometrial Biopsy completed Lashell Merritt MD [address] [facility],[address], [place], [address], [place] - [facility], 06/10/2023 10:29:54 05/16/19 21 laparoscopic sleeve gastrectomy completed Carmel Villalpando [place] - [facility], 05/05/2023 09:02:36 Imaging Results Imaging Date Name Status LastModified by Organization Details LastModified Time 05/27/2023 US, pelvis, transabdominal + transvaginal completed [place] [id number] [place], [address], 06/07/2023 15:34:49 05/25/2023 MAMMO, screening, digital, bilateral completed [email or web address] [facility] [address] [place], [address], 06/21/2023 08:11:13 Procedure Notes None recorded. Medical Equipment None Reported. Allergies Allergen ID Allergen Name Allergen Category Reaction Reaction Severity Criticality Documentation Date Start Date Code Code System Note Provider Name and Address Organization Details Recorded Time 46791 red dye food,medi cation Not available Not available Not available 05/05/2023 UNK Carmel lombardi [place] - [facility], 4 08:55:04 Medications Name Sig Start Date Stop Date Status Note LastModified by Organization Details LastModified Time phentermine 15 mg capsule TAKE 1 CAPSULE BY MOUTH EVERY DAY IN THE MORNING active Not Available Not Available No t Available triamcinolo ne acetonide 0.5 % topical ointment APPLY 1 GRAM TOPICALLY 2 TIMES DAILY FOR 10 DAYS. 05/05 completed Not Available Not Available Not Available doxycycline monohydrate 100 mg tablet TAKE 1 TABLET BY MOUTH TWICE A DAY FOR 10 DAYS 05/05 completed Not Available Not Available Not Available doxycycline monohydrate 100 mg capsule TAKE 1 CAPSULE BY MOUTH TWICE A DAY FOR 14 DAYS active Not Available Not Available No t Available ferrous sulfate 325 mg (65 mg iron) tablet TAKE 1 TABLET BY MOUTH EVERY DAY 06/10 completed Not Available Not Available Not Available losartan 50 mg-hydrochl orothiazide 12.5 mg tablet TAKE 1 TABLET BY MOUTH EVERY DAY active Not Available Not Available No t Available norethindro ne (contracept jayme) 0.35 mg tablet TAKE 1 TABLET BY MOUTH 1 TIME EACH DAY. 05/05 completed Not Available Not Available Not Available Vitamin D3 active Not Available Not Av ailable Not Available red beet 250 mg-sour nelson extract 0.5 mg chewable tablet Take by oral route. active Not Available Not Available No t Available Vitals Date Recorded Body weight Body mass index (BMI) Body height Heart rate Systolic blood pressure Diastolic blood pressure Provider Name and Address Organization Details Last Updated DateTime 4 578436. 1 g 38.3 kg/m2 162.56 cm 81 /min 122 mm[Hg] 82 mm[Hg] Carmel Villalpando [place] - [facility], 4 08:57:34 Date Recorded Body height Body mass index (BMI) Body weight Heart rate Body temperature Systolic blood pressure Diastolic blood pressure Provider Name and Address Organization Details Last Updated DateTime 4 162.56 cm 39.6 kg/m2 352509. 4 g 77 /min 97.2 [degF] 137 mm[Hg] 92 mm[Hg] carlene jasmine [place] - [facility], 4 09:55:10 Date Recorded Body height Provider Name an d Address Organization Details Last Updated DateTime 07/01/2023 162.56 cm Nayana dunne in [facility], 07/01/2023 11:04:06 Social History Question Answer Notes LastModified by Organization Details LastModified Time Tobacco Smoking Status Never Smoker Carmel lombardi [place] - [facility], 05/05/2023 08:58:25 What Is Your Level Of Alcohol Consumption? Occasional Information not available 05/05/2023 What Is Your Level Of Caffeine Consumption? Occasional Information not available 05/05/2023 In The 14 Days Before Symptom Onset, Have You Had Close Contact With A Laboratory-confi rmed COVID-19 While That Case Was Ill? No Information not available 05/05/2023 In The 14 Days Before Symptom Onset, Have You Had Close Contact With A Person Who Is Under Investigation For COVID-19 While That Person Was Ill? No Information not available 05/05/2023 Have You Been To An Area Known To Be High Risk For COVID-19? No Information not available 05/05/2023 Are You Currently Employed? Yes Information not available 05/05/2023 What Is The Highest Grade Or Level Of School You Have Completed Or The Highest Degree You Have Received? HK06718-6 Certified Information not available 05/05/2023 Who Is Your Employer? 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 No Information not available 05/05/2023 To Which Gender Do You Self-identify? Female Information not available 05/05/2023 What Was The Date Of Your Most Recent Tobacco Screening? 06/10/2023 [email or web address] Information not available 06/10/2023 What Is Your Relationship Status? Single In A Relationship Information not available 05/05/2023 Are You Sexually Active? Yes Information not available 05/05/2023 Do You Feel Stressed (tense, Restless, Nervous, Or Anxious, Or Unable To Sleep At Night)? [id number] Information not available 05/05/2023 Do You Use Any Illicit Or Recreational Drugs? No Information not available 05/05/2023 Sex: Female Functional Status Question Answer Note LastModified by Organizat ion Details LastModified Time What is your exercise level? Occasional Information not available 05/05/2023 Mental Status None recorded. Family History Relationship Description Onset Age of this Age Resolved Age Notes LastModified by Organization Details LastModified Time Father No current problems or disability Not available 05/05 08:58:00 Mother No current problems or disability Not available 05/05 08:58:01 Medical History Condition Response Anesthesia complications N High Blood Pressure Y Candidate for MyRisk panel N Autoimmune Condition N Thyroid Problems N Kidney or Bladder Problems N GI Problems N Lung Disease N Depression N Defects or Inherited Disease N Anemia Y History of Ovarian Cancer N History of Breast Cancer N ALIYAH exposure N BRCA testing in past N Osteopenia N Psychiatric Illness N Anxiety Disorder N Diabetes N Arthritis N Headaches or Migraines N Infertility N Asthma N History of Cancer N Endometriosis N Hepatitis N Heart Disease N Hypertension N Osteoporosis N Gynecological History Statement/Question Response Flow Heavy Date of LMP 06/27/2023 Frequency of Cycle (Q days) 28 Menses Monthly Y Duration of Flow (days) 6 Age at Menarche 14 Current Control Method None Obstetrics History GPAL:G 2 P 0 1 1 0 Type Value Spontaneous 1 Premature 1 Living 0 Total 2 Immunizations Vaccine Type Date Status Note Provider Nam e and Address Organization Details Recorded Time COVID-19, mRNA, LNP-S, PF, 100 mcg/0.5mL dose or 50 mcg/0.25mL dose 1 completed MIKE Ventura in [facility], 05/05/2023 08:56:53 COVID-19, mRNA, LNP-S, PF, 100 mcg/0.5mL dose or 50 mcg/0.25mL dose 1 completed MIKE Ventura in [facility], 05/05/2023 08:56:53 Tdap 1 completed MIKE Ventura in [facility], 05/05/2023 08:56:53 Tdap 9 completed MIKE Ventura in [facility], 05/05/2023 08:56:53 Influenza, split virus, trivalent, preservative 8 completed MIKE Ventura in [facility], 05/05/2023 08:56:53 Influenza, split virus, trivalent, preservative 1 completed MIKE Ventura in [facility], 05/05/2023 08:56:53 Influenza, split virus, quadrivalent, PF 5 completed MIKE Vent[facility] in [facility], 05/05/2023 08:56:53 Influenza, split virus, quadrivalent, PF 6 completed MIKE Ventura in [facility], 05/05/2023 08:56:54 Past Encounters Encounter ID Performer Location Encounter Start Date Encounter Closed Date Diagnosis/Indication Diagnosis SNOMED-CT Code Diagnosis ICD10 Code Diagnosis Note [id number] MD LASHELL Mcduffie MD [address] [facility] [facility] [place] [address] 05/05/2023 08:45:52 05/05/2023 12:04:46 Specialized medical examination 41980451 Z01.419 Screening mammography 24 785266 Z12.31 Menorrhagia 592939109 N9 2.0 Enlarged uterus 02211963 4 N85.2 [id number] MD LASHELL Mcduffie MD [address] [facility] [place] [address] 06/10/2023 09:49:25 06/10/2023 13:31:08 Oligoovulatory dysfunctional uterine bleeding 703425022 N93.8 [id number] MD LASHELL Mcduffie MD [address] [facility] [place] [address] 07/01/2023 10:51:47 07/01/2023 14:29:57 Chronic endometritis 04790111 N71.1 Uterine leiomyoma 115284 05 D25.9 Health Concerns Section Related Observation LastModified by Organization Detai ls LastModified Time None Recorded Concern Status LastModified by Organization Details LastModified Time None Recorded Advance Directives Directive None Recorded Payers Encounter Date Sequence Insurance Name Policy Number Policy Hein Covered Member ID Hein Member ID Guarantor Name 05/05/2023 1 [employer] [place] [id number] Brandyce Bress [id number] Brandyce Bress 06/10/2023 1 [employer] [place] [id number] Brandyce Bress [id number] Piedad Montes 07/01/2023 1 [employer]) [id number] Piedad Montes [id number] Piedad Montes Notes Date Note Type Note Provider Name and Address Organization Details Recorded Time 05/05/2023 text/html She is here for annual exam as a new patient, 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 She had been going to Dr. Huerta. Same partner for many years, on and off, they never got together. She did have 2 pregnancies with a different partner, one was premature at 24 weeks, who did not survive, the other was an IUFD at 22 weeks, many years ago. She is sexually active with no control and no with this partner for decades, on and off, since high school. She would actually like to be if she could but does not desire actively investigating this. He has never fathered any children. She was told in the remote past that she had a fibroid based on sonogram. She had been offered an IUD for her severe menorrhagia nad anemia due to this, but she had declined. Her PCP diagnosed her with low iron and ferritin this summer and she has been taking iron pills has not had it retested. She notes her flow is very heavy for 3 days then tapers off, the heaviest flow she changes a super tampon every 2 to 4 hours and may bleeding through it anyway. Lashell Merritt MD [address] [place] [address],[address], [place], [address], [place] [facility], 05/05/2023 09:48:35 06/10/2023 text/html She is here for emb for menorrhagia and a 15 mm endometrium on sonogram. LMP was 10 days ago, has not been sexually active since LMP began, menses came at the correct time and normal flow. Urine hcg is negative. 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 She had been going to Dr. Huerta.Same partner for many years, on and off, they never got together.She did have 2 pregnancies with a different partner, one was premature at 24 weeks, who did not survive, the other was an IUFD at 22 weeks, many years ago.She is sexually active with no control and no with this partner for decades, on and off, since high school. She would actually like to be if she could but does not desire actively investigating this.He has never fathered any children.She was told in the remote past that she had a fibroid based on sonogram.She had been offered an IUD for her severe menorrhagia nad anemia due to this, but she had declined. Her PCP diagnosed her with low iron and ferritin this summer and she has been taking iron pills has not had it retested.She notes her flow is very heavy for 3 days then tapers off, the heaviest flow she changes a super tampon every 2 to 4 hours and may bleeding through it anyway.We had a long discussion about all this. check cbc and iron studies, check pelvic sonogram, and then will do a telehealth to discuss best management.If she wants to know if her partner is infertile we can do a PCT, she is advised on how to do this.We discussed high risks issues with fibroids and she is advised to NOT attempt fertility until we know what the fibroid is like.She appears to be doing well. Check baseline mammogram. Lashell Merritt MD [address] [place] [address],[place] [address], [place], [address], [place] [facility], 06/10/2023 10:30:20 07/01/2023 text/html This visit is a phone telehealth visit. The patient consented to the visit by phone. The patient was at home at the time of the call and the provider and patient were the only people on the line. I was at [address] [place] [address], [place] [address], [place], [place], at the time of the call. She had a recent emb that showed chronic endometritis. Note from 06/10/23: She is here for emb for menorrhagia and a 15 mm endometrium on sonogram. LMP was 10 days ago, has not been sexually active since LMP began, menses came at the correct time and normal flow. Urine hcg is negative. Lashell Merritt MD [address], [place], [address], [place] [facility], 07/01/2023 13:31:18 OBGyn Episode No OBEpisode recorded.
== END 2024-06-21 12:06 | disposition home or self-care (01) ==
LOC: HO.MAMMO 12:05
PROVIDERS: PCP Family Medicine; Visit Provider Family Medicine
DX: Z12.31 Encounter for screening mammogram for malignant neoplasm of breast (principal)
CPT/HCPCS: 77063; 77067

== ENCOUNTER → 2024-06-21 12:15 | Outpatient (BNV) | payer OTHER, SELFPAY | PROVIDERS: PCP Family Medicine; Visit Provider Internal Medicine | DX: Z12.31 Encounter for screening mammogram for malignant neoplasm of breast (principal) | CPT/HCPCS: 77063; 77067 ==

== ENCOUNTER 2024-11-14 12:15 | Outpatient (REF) | payer OTHER, SELFPAY ==
--- OUTSIDE RECORDS SUMMARY | 2014-01-02 18:40 | XMS_ITS | Continuity of Care Document ---
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 Name Role Phone Provider, Conversion Unavailable Unavailable Allergies, Adverse Reactions, Alerts Substance Reaction Status Criticality No Known Drug Allergies Active No I nformation Medications Medication Instructions Dosage Effective Dates (start - stop) Status Comments NuvaRing 0.12 mg -0.015 mg/24 hr vaginal 1 Ring MONTHLY - Active Advance Directives Directive Yes / No Effective Date File Name No Information Encounters Encounter Description Practice Location Reason(s) For Visit Diagnoses Date Provider Providers Copied on Encounter [address] [place], [place], [id number], [place] tel:[phone] [facility] No Information 0 9201 4 Provider Conversion. . [address] [place], [id number], [place] tel:[phone] [facility] No Information Sep-0 3-201 3 Unidentified Provider. [address] [place] [address], [id number], . [address] [place], [id number], [place] tel:[phone] [facility] No Information Sep0 5-201 2 Unidentified Provider. [address] [place] [address], [id number], . [address] [place], [id number], [place] tel:[phone] [facility] No Information Aug-0 2-201 2 Provider Conversion. . Family History Family Member Type Diagnosis Age At Onset Mother Problem (finding) Diabetes mellitus Mother Problem (finding) hypertension Family H/O Problem (finding) FHX: Diabetes Family H/O Problem (finding) FHX: Hypertension Father Problem (finding) hypertension Immunizations Vaccine Date Status Comments Influenza (3 years and up) administered N [place]: Recorded 12/31/2011 11:40AM by Miranda Hurst LPN, ReviewSee scanned document for details. Administered fluarix vaccine on 12/30/2011. ; Source: New Immunization Record Payers Payer name Insurance type Covered alliance party ID Authoriza tion(s) No Information Social History Type Description Quantity Date Captured Comments Sex Female Smoking Status No Information Chief Complaint And Reason For Visit No Information Reason For Referral Reason For Referral No Information Plan Of Treatment Date Type Action Status Goal Td vaccine. Due on 14 due Goal Depression screening. Due on due Goal Tdap. Due on due History Of Present Illness Encounter Date Complaint History Of Prese nt Illness No Information Functional Status Date Functional Assessmen t No Information Instructions Date Instruction Additional Infor mation No Information Assessments Type Assessment Date No Information Patient Care Teams Name Effective Dates (start - stop) Status Members No Information
[2024-11-14 13:14] LABS: MANUAL DIFF FLAG NO
--- OUTSIDE RECORDS SUMMARY | 2024-11-14 13:19 | XMS_ITS | Data Portability ---
Author Organization [place] [facility],, LASHELL MERRITT MD Address [address] [address] Care Team Providers Care Scientific Manager Name Role Phone MAHESHBRYANNA BERNARDO Primary Care Provider Assessment No assessment recorded. Plan of Treatment Reminders Order Date Submit Date Provider Last Modified By Organization Details Last Modified Time Details Appointments None recorded. Lab biopsy, endometria l 2023 024 [facility] (Centralized Electronic Ordering - All Locations), Patient Can Go To The Location Of Their Choice, [id number] 4 07:38:27 test, urine 2023 024 [email or web address] 1 In-Office Order, Internal Use Only DO Not Attach Compendium DO Not Attach Compendium, Do Not Delete/merge, [id number] 4 10:24:27 pap test, thinprep, cervical 2023 024 [facility] ([facility] - All Locations), Patient Can Go To The Location Of Their Choice, [id number] 4 07:25:44 TSH, serum or plasma 2023 024 [facility], [place], [address], 4 11:34:36 CBC w/ auto diff 2023 024 [facility], [place], [address], 4 11:34:35 iron + TIBC + ferritin, serum 2023 [facility], [address] [facility] [place], [address], 4 11:34:35 Referral infertilit y reproducti ve endocrinol ogy referral - has a 7 cm fibroid, desires fertility, please assess for possible [facility]omectomy [email or web address], [address], [place], [address], 5 07:24:01 Procedures None recorded. Surgeries None recorded. Imaging MAMMO, screening, digital, bilateral - Breast Aspiration and/or Biopsy if needed 2023 [facility] (Imaging), [address] [place], [address], 4 08:07:32 US, pelvis, transabdom inal + transvagin al - enlarged uterus, fibroids, menorrhagi a 2023 [facility] (Imaging), [address] [place], [address], 4 18:14:23 Medication Orders doxycyclin e monohydrat e 100 mg capsule 2023 [id number], [address] [facility] [place], [address], 4 11:22:37 Patient TargetsNo targets recorded. Patient Instructions Encounter Date Encounter Id Patient Instructions Last Modified By Organization Details Last Modified Time 05/05/2023 [id number] learning about healthy weight Not available 05/05/2023 09:29:34 heavy menstrual periods: care instructions Not available 05/05/2023 09:29:34 She is here for annual exam as a new patient, her last drawing tender exam was a few years ago. She [...] the breast. Not available 05/05/2023 09:47:27 06/10/2023 [id number] abnormal uterine bleeding: care instructions Not available [...] exam as a new patient, her last drawing tender exam was a few years ago. She [...] heavy flow. Not available 06/10/2023 10:27:21 07/01/2023 [id number] uterine fibroids : care instructions Not available 07/01/2023 11:23:42 This visit is a phone telehealth visit. The patient consented to the visit by phone. The patient was at home at the time of the call and the provider and patient were the only people on the line. I was at [address] [place] [address], [place], [place], at the time of the call. 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 Perfo rmed at [facility] ate Refer ence Labor atory depar tment of Cytol ogy, [address] [place] Clini chana Histo ry (othe r): Z01.4 19 Prima ry Patho logis t: Danyell Romero.Shine Phone #: [phone] [phone], On-Ca Patho logis t: [id number] Not Available [facility] (Centralized Electronic Ordering - All Locations) Patient Can Go To The Location Of Their Choice, [id number] 05/14/2023 09:42:33 06/10/19 24 06/10/2023 [facility] SURGI [...] is prese nt with spind led malgorzata madrigal ele nts, lymph oid aggre morse , and [...] Patho logis t:Rachel villarreal M.D. elect melody howe d out by: Aubree villarreal M.D. / [...] tiple piece s, x2. (HG)* Phone #: [phone], On-Ca ll Patho logis t: [id number] Not Available [facility] (Centralized Electronic Ordering - All Locations) Patient Can Go To The Location Of Their Choice, [id number] 06/29/2023 16:57:41 06/10/19 24 06/10/2023 pregn delia test, urine HCG negati ve Not Available In-Office Order Internal Use Only DO Not Attach Compendium DO Not Attach Compendium, Do Not Delete/merge, [id number] 06/10/2023 10:23:05 05/31/19 24 05/27/2023 US, pelvi s, trans abdom inal + trans vagin al No observ ation record ed. [address], [address], 06/07/2023 15:34:49 06/07/19 24 05/25/2023 MAMMO , scree kenny, digit al, bilat eral No observ ation record ed. [email or web address] [facility] [address] [facility] [place], [address], 06/21/2023 08:11:13 Result Notes None recorded. Problems Name Problem SNOMED Code Status Onset Date Resolution Date Notes Provider Name and Address Organization Details Recorded Time Anemia 417200152 Active 2023 [place] - [facility], 4 08:57:50 Hypertensive disorder 46211685 Active 2023 [place] in [facility], 4 08:57:56 Problem Notes None recorded. Procedures Surgical History Date Name Laterality Status Provider Name and Address Organization Details Recorded Time 06/10/19 24 Endometrial Biopsy completed Lashell Merritt MD [address] [facility],[address], [place], [address], [place] - [facility], 06/10/2023 10:29:54 05/16/19 21 laparoscopic sleeve gastrectomy completed Carmel Purvis in [facility], 05/05/2023 09:02:36 Imaging Results None recorded. Procedure Notes None recorded. Medical Equipment None Reported. Allergies Allergen ID Allergen Name Allergen Category Reaction Reaction Severity Criticality Documentation Date Start Date Code Code System Note Provider Name and Address Organization Details Recorded Time red dye food,medi cation Not available Not available Not available 05/05/2023 UNK [place] in [facility], 4 08:55:04 Medications Name Sig Start [...] index (BMI) Body height Heart rate Systolic And Diastolic Provider Name and Address Organization Details Last Updated DateTime 05/05/2023 927032.1 g 38.3 kg/m2 162.56 cm 81 /min 122/82 mm[Hg] Carmel Purvis in [facility], 05/05/2023 08:57:34 Date Recorded Body height Body mass index (BMI) Body weight Heart rate Body temperature Systolic And Diastolic Provider Name and Address Organization Details Last Updated DateTime 162.56 cm 39.6 kg/m2 988479. 4 g 77 /min 97.2 [degF] 137/92 mm[Hg] carlene Purvis in [facility], 09:55:10 Date Recorded Body height Provider Name an d Address Organization Details Last Updated DateTime 07/01/2023 162.56 cm Nayana Lujna in [facility], 07/01/2023 11:04:06 Social History Question Answer Notes LastModified by Organization Details LastModified Time Tobacco Smoking Status Never Smoker Carmel lombardi [place] - [place] in [facility], 05/05/2023 08:58:25 What Is Your Level Of Caffeine Consumption? [...] For COVID-19? No Information not available 05/05/2023 What Is The Highest Grade Or Level Of School You Have Completed Or The Highest Degree You Have Received? [id number] Certified Information not available 05/05/2023 Who Is Your Employer? [employer] Information not available 05/05/2023 Are There Any [...] Sexually Active? Yes Information not available 05/05/2023 Sex: Female Functional Status Question Answer Note LastModified by MollyWatrizat ion Details LastModified Time Do you use any illicit or recreational drugs? No Information not available 05/05/2023 What is your level of alcohol consumption? Occasional Information not available 05/05/2023 Are you currently employed? 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 Occasional Information not available 05/05/2023 Mental Status Question Answer Note LastModified by Organization D etails LastModified Time Do you feel stressed (tense, restless, nervous, or anxious, or unable to sleep at night)? [id number] Information not available 05/05/2023 Family History Relationship Description Onset Age of [...] mcg/0.25mL dose 1 completed [place] in [facility], 05/05/2023 08:56:53 COVID-19, mRNA, LNP-S, PF, 100 mcg/0.5mL dose or 50 mcg/0.25mL dose 1 completed [place] in [facility], 05/05/2023 08:56:53 Tdap 1 completed [place] in [facility], 05/05/2023 08:56:53 Tdap 9 completed [place] in [facility], 05/05/2023 08:56:53 Influenza, split virus, trivalent, preservative 8 completed [place] in [facility], 05/05/2023 08:56:53 Influenza, split virus, trivalent, preservative 1 completed [place] in [facility], 05/05/2023 08:56:53 Influenza, split virus, quadrivalent, PF 5 completed [place] in [facility], 05/05/2023 08:56:53 Influenza, split virus, quadrivalent, PF 6 completed [place] in [facility], 05/05/2023 08:56:54 Past Encounters Encounter ID Performer Location Encounter Start Date Encounter Closed Date Diagnosis/Indication Diagnosis SNOMED-CT Code Diagnosis ICD10 Code Diagnosis Note [id number] MD LASHELL Mcduffie MD [address] [facility] [place] [address] 05/05/2023 08:45:52 05/05/2023 12:04:46 Specialized medical examination 02930265 Z01.419 Screening mammography 24 470682 Z12.31 Menorrhagia 318779405 N9 2.0 Enlarged uterus 19620503 4 N85.2 [id number] MD LASHELL Mcduffie MD [address] [place] [address], [place] [address] 06/10/2023 09:49:25 06/10/2023 13:31:08 Oligoovulatory dysfunctional uterine bleeding 813047778 N93.8 [id number] MD LASHELL Mcduffie MD [address] [place] [address], [place] [address] 07/01/2023 10:51:47 07/01/2023 14:29:57 Chronic endometritis 98380490 N71.1 Uterine leiomyoma 129058 05 D25.9 Health Concerns Section Related Observation LastModified by Organization Detai ls LastModified Time None Recorded Concern Status LastModified by Organization Details LastModified Time None Recorded Advance Directives Directive None Recorded Payers Insurance Date Sequence Insurance Name Policy Number Policy Hein Covered Member ID Hein Member ID Guarantor Name 05/05/2023 1 [place] [id number] Brandyce D Bress [id number] Brandyce Bress 05/05/2023 1 [place] [id number] Brandyce Bress [id number] Brandyce Bress 07/01/2023 1 [employer] [place] [id number] Brandyce Bress [id number] Brandyce Bress Notes Date Note Type Note Provider Name and Address Organization Details Recorded Time 05/05/2023 text/html She is here for annual exam as a new patient, her last drawing tender exam was a few years ago. She [...] bleeding through it anyway. Lashell Merritt MD [address] [facility],[address], [place], [address], [place] [facility], [...] exam as a new patient, her last drawing tender exam was a few years ago. She [...] well. Check baseline mammogram. Lashell Merritt MD [address] [facility],[address], [place], [address], [employer] in [facility], 06/10/2023 10:30:20 07/01/2023 text/html This visit is a phone telehealth visit. The patient consented to the visit by phone. The patient was at home at the time of the call and the provider and patient were the only people on the line. I was at [address] [facility], [address], [place], [place], at the time of the call. She had a recent emb that showed chronic endometritis. Note from 06/10/23: She is here for emb for menorrhagia and a 15 mm endometrium on sonogram. LMP was 10 days ago, has not been sexually active since LMP began, menses came at the correct time and normal flow. Urine hcg is negative. Lashell Merritt MD [address] [facility],[address], [place], [address], [employer] [facility], 07/01/2023 13:31:18 OBGyn Episode No OBEpisode recorded.
[2024-11-14 13:54] LABS: Hematocrit 29.8 % (37.0-47.0); Hemoglobin 9.8 g/dl (12.0-16.0); Imm Gran Abs Auto 0.01 X10*3/uL (0.00-0.03); Imm Gran Pct Auto 0.2 % (0.0-0.4); Lymphocytes Absolute Auto 2.1 X10*3/uL (1.2-4.9); Mean Corpuscular HGB Conc 32.9 g/dl (31.0-35.0); Mean Corpuscular Hemoglobin 21.3 pg (27.0-33.0); NRBC Abs Auto 0.020 X10*3/uL (0.0-0.012); NRBC Pct Auto 0.4 /100WBC (0.0-0.2); Platelet Count 260 X10*3/uL (160-400); Red Blood Count 4.61 X10*6/uL (4.20-5.50); White Blood Count 4.9 X10*3/uL (4.8-10.8)
[2024-11-14 13:55] LABS: Mean Corpuscular Volume 64.6 fL (80.0-98.0)
[2024-11-14 15:05] LABS: Alanine Aminotransferase 12 U/L (0-31); Albumin Level 4.0 g/dL (3.5-5.0); Alkaline Phosphatase 30 U/L (39-117); Anion Gap 10 (12-20); Aspartate Amino Transferase 21 U/L (5-31); Blood Urea Nitrogen 11 mg/dL (9-16); Calcium 8.8 mg/dL (8.4-10.2); Carbon Dioxide 25 mmol/L (22-29); Chloride 108 mmol/L (96-108); Estimated Glomerular Filt Rate > 60; Iron 14 mcg/dL (30-160); Percent Iron Saturation 4 % (15-50); Potassium 4.1 mmol/L (3.3-5.1); Sodium 139 mmol/L (135-145); Total Iron Binding Capacity 392 mcg/dL (228-428); Total Protein 6.7 g/dL (6.5-8.0); Unsaturated Iron Binding 378 ug/dL
[2024-11-14 15:10] LABS: Ferritin 4 ng/mL (10-250)
== END 2024-11-14 12:16 | disposition home or self-care (01) ==
LOC: HO.10HDL 12:15
PROVIDERS: Visit Provider Physician Assistant
DX: D50.9 Iron deficiency anemia, unspecified (principal); I10 Essential (primary) hypertension; E55.9 Vitamin D deficiency, unspecified
CPT/HCPCS: 36415; 80053; 82306; 82728; 83540; 85025